=== PATIENT | male | born 1975 | race Caucasian/White ===

== ENCOUNTER 2024-12-08 10:18 | Emergency (ER) | payer BC, SELFPAY ==
[2024-12-08 10:21] VITALS: BP 179/111
--- NOTE | 2024-12-08 11:09 | ED.GENMED ---
History of Present Illness
<GENO Petty - Last Filed: 12/08/24 11:27>
General
Chief Complaint: Musculo-Skeletal Complaint
Source: patient
Exam Limitations: none
Time Seen by Provider: 12/08/24 10:29
History of Present Illness
History of Present Illness:
This is a 49 y/o M with no significant PMH who presents for fatigue, muscle twitches and headache x 1 month. He describes the muscle twitches like intermittent 'zaps' all throughout his body. He reports the fatigue 'like nothing he ever felt
before'. His VALLES is generalized and constant. About one month ago, he pulled off two tics. His symptoms started later that week. He went to urgent care and was given 30 day course of doxycycline for presumed lyme disease. After 10 days, patient
tested negative for lyme, symptoms were not improving and he developed a rash on his trunk. Rash isolated to anterior trunk. He discontinued the doxy per his PCP. As of recent, he feels thirstier than usual. He feels like no matter how much water he
drinks, he still has a dry mouth. He denies fevers, joint pain, stiffness, muscle aches, chest pain, shortness of breath, vomiting, polyphagia, polyuria, syncope.
He denies a PMH of autoimmune disorders, DM, HLD, stroke, MS. His father has a rare autoimmune disorder. Surgical hx noncontributory. Drinks beer occasionally. No tobacco or drug use. No sick contacts.
Past History
<GENO Petty - Last Filed: 12/08/24 11:27>
Past History
ED Past Medical History: None
ED Past Surgical History: Cholecystectomy
Social History
Tobacco: Non-smoker
Alcohol: Occasional
Drug: None
Personal:
Living: with family
Review of Systems
<GENO Petty - Last Filed: 12/08/24 11:27>
Review of Systems
Constitutional: Reports fatigue; Denies fever
EENT: Reports no symptoms
Respiratory: Reports no symptoms
Cardiac: Reports no symptoms
ABD/GI: Reports nausea; Denies abdominal pain or vomiting
: Reports no symptoms
Musculoskeletal: Reports other (muscle twitches); Denies joint pain or muscle stiffness
Skin: Reports rash
Neurological: Reports headache and other (brain fog)
Endocrine: Reports polydipsia; Denies polyuria
Phy Exam
<GENO Petty - Last Filed: 12/08/24 11:27>
General Physical Exam
General Presentation: well appearing
General age: appears stated age
General Skin: warm and dry
General Habitus: normal
General Mental: alert
ENT Exam
ENT Exam: EOMI
Eye Exam
Eye Exam: PERRL
Cardiovascular Exam
Cardiovascular Exam: regular rate/rhythm, no edema and normal peripheral pulses
Pulmonary Exam
Pulmonary Exam: lungs clear and no respiratory distress
Gastrointestinal Exam
Gastrointestinal Exam: non tender and non distended
Neurological Exam
Neurological Exam: alert, oriented x3, CN II-XII intact, no motor deficits, no sensory deficits and speech normal
Musculoskeletal Exam
Musculoskeletal Exam: full ROM
Skin Exam
Skin Exam: other (slight erythema and urticaria isolated to anterior chest wall)
<Hola Holland MD - Last Filed: 12/08/24 14:02>
Skin Exam
Skin Exam: other (slight erythema and papular rash to anterior trunk)
Course
<GENO Petty - Last Filed: 12/08/24 11:27>
Orders/Labs/Results
Orders:
Orders
12/08/24 11:00
CT Head W/o Iv Contrast Urgent
Comment:
Reason For Exam: altered mental status
12/08/24 11:07
0.9% Sodium Chloride 1000 ml [Nss] 1,000 ml IV BOLUS
12/08/24 11:10
Complete Blood Count/With Diff Urgent
Comprehensive Metabolic Panel Urgent
Lyme Progressive Urgent
Comment: ADD ON
Magnesium Urgent
Total CK [Creatine Phosphokinase] Urgent
12/08/24 12:13
Methocarbamol 1,500 mg PO NOW STA
12/08/24 12:34
Urinalysis Reflex To Culture Urgent
Date Specimen was Collected: 12/08/24
Time Specimen was Collected: 12:26
12/08/24 13:29
Add On- LAB Urgent
Tests Added?: Lyme panel
Abnormal Lab Results
12/08/24
11:10
Lymphocytes % 19.5 L %
(20.5-51.1)
Monocytes % 9.7 H %
(1.7-9.3)
Chloride 108 H mmol/L
(98-107)
Glucose 122 H mg/dl
(70-99)
12/08/24 11:10
12/08/24 11:10
Vital Signs
Initial and Last Documented VS:
Initial Vital Signs
Temp Pulse Resp BP Pulse Ox
98.5 F 90 16 179/111 100
12/08/24 10:21 12/08/24 10:21 12/08/24 10:21 12/08/24 10:21 12/08/24 10:21
Last Documented Vital Signs
Temp Pulse Resp BP Pulse Ox
98.5 F 90 16 179/111 100
12/08/24 10:21 12/08/24 10:21 12/08/24 10:21 12/08/24 10:21 12/08/24 11:24
<Hola Holland MD - Last Filed: 12/08/24 14:02>
Orders/Labs/Results
Orders:
Orders
12/08/24 11:00
CT Head W/o Iv Contrast Urgent
Comment:
Reason For Exam: altered mental status
12/08/24 11:07
0.9% Sodium Chloride 1000 ml [Nss] 1,000 ml IV BOLUS
12/08/24 11:10
Complete Blood Count/With Diff Urgent
Comprehensive Metabolic Panel Urgent
Lyme Progressive Urgent
Comment: ADD ON
Magnesium Urgent
Total CK [Creatine Phosphokinase] Urgent
12/08/24 12:13
Methocarbamol 1,500 mg PO NOW STA
12/08/24 12:34
Urinalysis Reflex To Culture Urgent
Date Specimen was Collected: 12/08/24
Time Specimen was Collected: 12:26
12/08/24 13:29
Add On- LAB Urgent
Tests Added?: Lyme panel
Abnormal Lab Results
12/08/24
11:10
Lymphocytes % 19.5 L %
(20.5-51.1)
Monocytes % 9.7 H %
(1.7-9.3)
Chloride 108 H mmol/L
(98-107)
Glucose 122 H mg/dl
(70-99)
12/08/24 11:10
12/08/24 11:10
Vital Signs
Initial and Last Documented VS:
Initial Vital Signs
Temp Pulse Resp BP Pulse Ox
98.5 F 90 16 179/111 100
12/08/24 10:21 12/08/24 10:21 12/08/24 10:21 12/08/24 10:21 12/08/24 10:21
Last Documented Vital Signs
Temp Pulse Resp BP Pulse Ox
98.5 F 90 16 179/111 100
12/08/24 10:21 12/08/24 10:21 12/08/24 10:21 12/08/24 10:21 12/08/24 11:24
<GENO Petty - Last Filed: 12/08/24 11:27>
*Pulse Oximetry
SaO2: 100
Oxygen Mode of Delivery: Room air
<Hola Holland MD - Last Filed: 12/08/24 14:02>
*Critical Care Note
Total Time (30-74mins, 75-104mins- exclusive of procedures): Not Applicable
ED Attending Note
<GENO Petty - Last Filed: 12/08/24 11:27>
-
Portions of this chart may have been created with voice recognition software.� Occasional wrong word or��sound alike� substitutions may have occurred due to the inherent limitations of voice recognition software.
<Hola Holland MD - Last Filed: 12/08/24 14:02>
ED Attending Note
ED Attending Note:
patient with various complaints including dry mouth, fatigue, headache, muscle twitching. Non toxic. Hemodynamically stable. Afebrile. Labs are reassuring. It is possible he has a tick borne illness. Lyme testing was negative. Instructed to take the
antibiotics (patient penicillin allergic, doxycycline caused rash. Rx for cephalosporin). If no improvement will provide rheumatology and neurology follow up.
Discharge Plan
Departure
Patient Disposition: Home (Routine Discharge)
Date of Disposition: 12/08/24
Time of Disposition: 13:17
Patient with high blood pressure during this ER visit?: Yes
Discharge Problem:
Hypertension, Muscle spasm, Headache
Instructions: Lyme disease, Muscle spasms (muscle cramps)
Prescriptions:
New
methocarbamol 1,000 mg tablet
1,000 mg PO TID Qty: 10 0RF
cefuroxime axetil 500 mg tablet
500 mg PO Q12H Qty: 28 0RF
Referrals:
Gracie Bahena MD [Active, Neurology]
Brett Sabillon MD [Active, Rheumatology]
Mauri Levin DO [Family Provider, Family Practice]
Activity Restrictions/Additional Instructions:
Today's workup in the emergency department was unrevealing, however, that does not mean there is nothing wrong. You need to continue your workup as an outpatient. Please start the antibiotic as prescribed -- we are treating for possible tick borne
disease as the majority of these symptoms started after you found ticks on your body. If you are not feeling better after the antibiotics or have worsening symptoms please see the neurologist and tow driver.
Return to the ER with new or severe symptoms.
Interventions
Interventions:
*Risk Screen - Suicide Last Done: 12/08/24 13:37
*General Assessment Last Done: 12/08/24 13:37
*Neglect/Abuse Screening Last Done: 12/08/24 13:37
*ED- Fall Risk Assessment Last Done: 12/08/24 13:37
*ED COVID-19 Vaccine History Last Done: 12/08/24 13:37
*Nursing Disposition Last Done: 12/08/24 13:37
ED-Musculoskeletal Assessment Last Done: 12/08/24 11:59
Discharge Date and Time
Discharge Date/Time: 12/08/24 13:38
Print Language: SPANISH
[2024-12-08] MEDS: NSS 1000 IV (11:12)
[2024-12-08 11:28] LABS: % Basophils 0.5 % (0-2); % Eosinophils 0.6 % (0-6); % Immature Granulocytes 0.3 % (0-0.5); % Lymphocytes 19.5 % (20.5-51.1); % Monocytes 9.7 % (1.7-9.3); % Neutrophils 69.4 % (42.2-75.2); Absolute Lymphocytes 1.3 10^3/uL (1.2-3.4); Absolute Monocytes 0.6 10^3/uL (0.1-0.6); Absolute Neutrophils 4.6 10^3/uL (1.4-6.5); Hematocrit 45.1 % (39.0-52.0); Hemoglobin 15.5 g/dL (13.0-18.0); Mean Corp Hgb Conc. 34.4 g/dL (33.0-37.0); Mean Corpuscular Hgb 30.3 pg (27.0-31.0); Mean Corpuscular Volume 88.1 fL (80.0-94.0); Nucleated Red Blood Cells % 0 % (-); Platelet Count 279 10^3/uL (130-400); Red Blood Cell Count 5.12 10^6/uL (4.70-6.10); White Blood Cell Count 6.6 10^3/uL (4.8-10.8)
[2024-12-08 11:44] LABS: ALT (SGPT) 26 U/L (0-50); AST (SGOT) 20 U/L (17-59); Albumin 4.9 g/dl (3.5-5.0); Alkaline Phosphatase 55 U/L (38-126); Blood Urea Nitrogen 11 mg/dl (9-20); Calcium 9.9 mg/dl (8.4-10.2); Carbon Dioxide 26 mmol/L (22-30); Chloride 108 mmol/L (98-107); Creatine Phosphokinase 61 U/L (55-170); Glucose 122 mg/dl (70-99); Magnesium 2.2 mg/dl (1.6-2.3); Potassium 4.2 mmol/L (3.5-5.1); Sodium 142 mmol/L (135-145); Total Bilirubin 0.7 mg/dl (0.2-1.3); Total Protein 7.8 g/dl (6.3-8.2); eGFR > 60.00
[2024-12-08] MEDS: METHOCARBAMOL 1500 MG PO (12:22)
[2024-12-08 12:52] LABS: Urine Albumin Negative (Neg - Trace); Urine Bilirubin Negative (Negative); Urine Character Clear (Clear); Urine Color Yellow; Urine Glucose Negative (Negative); Urine Ketone Negative (Negative); Urine Leukocyte Negative (Negative); Urine Nitrite Negative (Negative); Urine Occult Blood Negative (Negative); Urine Specific Gravity 1.005 (<1.030); Urine Urobilinogen Negative (Neg - 1+)
[2024-12-09 13:28] LABS: Lyme Antibody Screen, EIA Negative (Negative)
== END 2024-12-08 13:38 | disposition home or self-care (01) ==
LOC: EMR 10:18
PROVIDERS: EMERGENCY PHYSICIAN Emergency Medicine; FAMILY PHYSICIAN Family Medicine
DX: M62.838 Other muscle spasm (principal); I10 Essential (primary) hypertension; R51.9 Headache, unspecified
CPT/HCPCS: 96360; 99284; 70450; 80053; 81003; 82550; 83735; 85025; 86618